=== PATIENT | female | born 1955 | race Caucasian/White ===

== ENCOUNTER → 2024-03-30 12:13 | Outpatient (REF) | payer MEDICARE, SELFPAY | LOC: WDC 12:13 | PROVIDERS: ATTENDING PHYSICIAN Obstetrics & Gynecology Gynecology; FAMILY PHYSICIAN Family Medicine | DX: Z12.31 Encounter for screening mammogram for malignant neoplasm of breast (principal) | CPT/HCPCS: 77063; 77067 ==

== ENCOUNTER → 2025-04-01 12:22 | Outpatient (REF) | payer MEDICARE, SELFPAY | LOC: WDC 12:22 | PROVIDERS: ATTENDING PHYSICIAN Obstetrics & Gynecology Gynecology; FAMILY PHYSICIAN Family Medicine | DX: Z12.31 Encounter for screening mammogram for malignant neoplasm of breast (principal) | CPT/HCPCS: 77063; 77067 ==

== ENCOUNTER → 2025-10-31 15:18 | Outpatient (REF) | payer MEDICARE, SELFPAY | LOC: RAD 15:18 | PROVIDERS: ATTENDING PHYSICIAN Family Medicine | DX: R10.32 Left lower quadrant pain (principal); K57.90 Diverticulosis of intestine, part unspecified, without perforation or abscess without bleeding | CPT/HCPCS: 74178; Q9967 ==

== ENCOUNTER → 2025-11-05 08:11 | Outpatient (REF) | payer MEDICARE, SELFPAY | LOC: HWRAD 08:11 | PROVIDERS: ATTENDING PHYSICIAN Nurse Practitioner Adult Health; FAMILY PHYSICIAN Family Medicine | DX: C56.9 Malignant neoplasm of unspecified ovary (principal); N83.209 Unspecified ovarian cyst, unspecified side; R10.20 Pelvic and perineal pain unspecified side | CPT/HCPCS: 76830; 76856 ==